=== PATIENT | female | born 1965 | race Hispanic/Latino ===

== ENCOUNTER → 2021-09-02 | Day surgery (SDC) | payer OTHER ==
[~2021-09-02] MED LIST: ACTOS15 MG PO; ATARAX PO; DEXTROSE 5% 250ML 250 ML IV ONE; FARXIGA10 MG PO; FENTANYL CITRATE/PF 100MCG/2 ML INJ ONE; LANTUS 3ML100 UNITS/ SC; LIPITOR10 MG PO; LYRICA75 MG PO; METFORMIN HCL500 MG PO; MIDAZOLAM HCL 2 MG/2 ML VIAL ONE; MOBIC7.5 MG PO; OR PHACO EYE KIT ONE; PREOP PHACO EYE KIT ONE; PROVENTIL HFA6.7 GM INH; REGLAN10 MG PO; VIT D PO; ZESTRIL10 MG PO; ZETIA10 MG PO
[2021-09-02 11:42] VITALS: BP 133/61
== END | disposition home or self-care (01) ==
LOC: OR 08:39
PROVIDERS: ATTEND Ophthalmology
DX: H25.012 Cortical age-related cataract, left eye (principal); H25.12 Age-related nuclear cataract, left eye; Z20.822 Contact with and (suspected) exposure to COVID-19; E11.9 Type 2 diabetes mellitus without complications; I10 Essential (primary) hypertension; E78.5 Hyperlipidemia, unspecified; E66.9 Obesity, unspecified; J45.909 Unspecified asthma, uncomplicated; Z79.4 Long term (current) use of insulin; Z79.899 Other long term (current) drug therapy; Z68.41 Body mass index [BMI] 40.0-44.9, adult
CPT/HCPCS: 36415; 66982; 82948; J2250; J3010; J7070; U0002; V2632

== ENCOUNTER → 2021-09-23 | Day surgery (SDC) | payer OTHER ==
[~2021-09-23] MED LIST changes: -FENTANYL CITRATE/PF 100MCG/2 ML INJ ONE; -MIDAZOLAM HCL 2 MG/2 ML VIAL ONE
[2021-09-23 14:35] VITALS: BP 127/61
== END | disposition home or self-care (01) ==
LOC: OR 10:50
PROVIDERS: ATTEND Ophthalmology
DX: H25.041 Posterior subcapsular polar age-related cataract, right eye (principal); E11.9 Type 2 diabetes mellitus without complications; I10 Essential (primary) hypertension; F41.9 Anxiety disorder, unspecified; Z20.822 Contact with and (suspected) exposure to COVID-19; Z79.4 Long term (current) use of insulin; Z79.899 Other long term (current) drug therapy; Z68.41 Body mass index [BMI] 40.0-44.9, adult; Z86.19 Personal history of other infectious and parasitic diseases
CPT/HCPCS: 36415; 66984; 82948; J7070; U0002; V2632